=== PATIENT | female | born 1950 | race Caucasian/White ===

== ENCOUNTER → 2016-09-20 | Outpatient (CLI) | payer MEDICARE ==
[~2016-09-20] MED LIST: ANTIBIOTIC UNKNOWN; CALTRATE 600600 MG PO; FISH OIL SUPER1 SGL PO; FOSAMAX PO; LIPITOR; MEDROL 4MG DOSPA4 MG PO; METRONIDAZOLE500 MG PO; MULTI VITAMINS1 TAB PO; NATURE'S BLE1000 MCG PO; PRILOSEC 20MG20 MG PO; VANCOCIN HCL P250 MG PO; ZOLOFT
== END ==
LOC: MC.RAD 14:19
DX: Z12.31 Encounter for screening mammogram for malignant neoplasm of breast (principal)

== ENCOUNTER → 2017-10-07 | Outpatient (CLI) | payer MEDICARE | LOC: MC.RAD 10:00 | DX: Z12.31 Encounter for screening mammogram for malignant neoplasm of breast (principal); Z98.890 Other specified postprocedural states ==

== ENCOUNTER → 2018-11-21 | Outpatient (CLI) | payer MEDICARE | LOC: MC.RAD 09:00 | DX: Z12.31 Encounter for screening mammogram for malignant neoplasm of breast (principal); Z98.82 Breast implant status ==